=== PATIENT | female | born 1960 | race Caucasian/White ===

== ENCOUNTER 2017-03-31 13:59 | Outpatient (CLI) | payer OTHER ==
[~2017-03-31 13:59] MED LIST: DICLOFENAC POTA50 MG PO; KETO10TA2 PO; NORFLEX100MG PO; ORPH100T PO; TESSALON PERLE100 M1 PO; TORADOL60 MG IM; VOLTAREM 50 MG PO; ZYRTEC10 M3 PO
== END 2017-03-31 14:19 | disposition home or self-care (01) ==
LOC: RAD 13:59
DX: M54.5 Low back pain (principal)

== ENCOUNTER 2017-07-11 10:14 | Outpatient (CLI) | payer OTHER | END 2017-07-11 10:27 | disposition home or self-care (01) | LOC: TOM 10:14 | DX: J45.50 Severe persistent asthma, uncomplicated (principal); R09.1 Pleurisy ==

== ENCOUNTER → 2017-07-11 | Outpatient (CLI) | payer OTHER | END | disposition home or self-care (01) | LOC: PPHC 12:13 | DX: L03.116 Cellulitis of left lower limb (principal) ==

== ENCOUNTER 2017-08-10 12:04 | Outpatient (CLI) | payer OTHER | END 2017-08-10 12:14 | disposition home or self-care (01) | LOC: LAB 12:04 | DX: J45.50 Severe persistent asthma, uncomplicated (principal); J41.0 Simple chronic bronchitis; R05 Cough; R60.0 Localized edema ==

== ENCOUNTER 2017-11-08 14:04 | Outpatient (CLI) | payer OTHER | END 2017-11-08 14:23 | disposition home or self-care (01) | LOC: LAB 14:04 | DX: J30.89 Other allergic rhinitis (principal) ==

== ENCOUNTER → 2018-01-16 12:23 | Outpatient (CLI) | payer OTHER | END | disposition home or self-care (01) | LOC: LAB 12:23 | DX: N39.0 Urinary tract infection, site not specified (principal); R10.84 Generalized abdominal pain; I10 Essential (primary) hypertension ==

== ENCOUNTER 2018-02-28 14:43 | Outpatient (CLI) | payer OTHER | END 2018-02-28 15:00 | disposition home or self-care (01) | LOC: LAB 14:43 | DX: N39.0 Urinary tract infection, site not specified (principal) ==

== ENCOUNTER 2018-07-11 09:14 | Outpatient (CLI) | payer OTHER | END 2018-07-11 09:23 | disposition home or self-care (01) | LOC: LAB 09:14 | DX: M19.90 Unspecified osteoarthritis, unspecified site (principal); E78.89 Other lipoprotein metabolism disorders; E03.8 Other specified hypothyroidism ==

== ENCOUNTER → 2018-07-12 | Outpatient (CLI) | payer OTHER | END | disposition home or self-care (01) | LOC: NUCLEAR 13:00 | DX: I87.2 Venous insufficiency (chronic) (peripheral) (principal); E66.01 Morbid (severe) obesity due to excess calories ==

== ENCOUNTER 2018-08-30 14:12 | Outpatient (CLI) | payer OTHER | END 2018-08-30 14:17 | disposition home or self-care (01) | LOC: RAD 14:12 | DX: J32.8 Other chronic sinusitis (principal) ==

== ENCOUNTER 2018-11-28 14:14 | Outpatient (CLI) | payer OTHER | END 2018-11-28 15:00 | disposition home or self-care (01) | LOC: LAB 14:14 | DX: J45.50 Severe persistent asthma, uncomplicated (principal); J30.89 Other allergic rhinitis ==

== ENCOUNTER 2019-01-16 14:08 | Outpatient (CLI) | payer OTHER | END 2019-01-16 14:55 | disposition home or self-care (01) | LOC: TOM 14:08 | DX: D35.2 Benign neoplasm of pituitary gland (principal) ==

== ENCOUNTER 2019-01-17 14:07 | Outpatient (CLI) | payer OTHER | END 2019-01-17 14:37 | disposition home or self-care (01) | LOC: MAMO-SONO 14:07 | DX: Z12.31 Encounter for screening mammogram for malignant neoplasm of breast (principal); Z12.39 Encounter for other screening for malignant neoplasm of breast ==

== ENCOUNTER 2019-09-25 15:10 | Outpatient (CLI) | payer OTHER | END 2019-09-25 15:16 | disposition home or self-care (01) | LOC: LAB 15:10 | PROVIDERS: ATTEND Internal Medicine Pulmonary Disease | DX: J45.50 Severe persistent asthma, uncomplicated (principal) ==

== ENCOUNTER 2019-12-04 16:15 | Outpatient (CLI) | payer OTHER | END 2019-12-04 18:00 | disposition home or self-care (01) | LOC: PPH VACUNA 16:15 | DX: Z23 Encounter for immunization (principal) ==

== ENCOUNTER 2020-01-08 14:17 | Outpatient (CLI) | payer OTHER | END 2020-01-08 14:24 | disposition home or self-care (01) | LOC: RAD 14:17 | PROVIDERS: ATTEND Internal Medicine Cardiovascular Disease | DX: M54.5 Low back pain (principal); M12.851 Other specific arthropathies, not elsewhere classified, right hip; M12.852 Other specific arthropathies, not elsewhere classified, left hip ==

== ENCOUNTER → 2020-01-10 08:51 | Outpatient (CLI) | payer OTHER | END | disposition home or self-care (01) | LOC: LAB 01-09 13:33 | PROVIDERS: ATTEND Internal Medicine Cardiovascular Disease | DX: I10 Essential (primary) hypertension (principal); E11.9 Type 2 diabetes mellitus without complications; E03.8 Other specified hypothyroidism; E78.2 Mixed hyperlipidemia; E55.9 Vitamin D deficiency, unspecified ==

== ENCOUNTER 2020-05-28 15:33 | Outpatient (CLI) | payer OTHER | END 2020-05-28 15:41 | disposition home or self-care (01) | LOC: RAD 15:33 | PROVIDERS: ATTEND Preventive Medicine Occupational Medicine | DX: M17.11 Unilateral primary osteoarthritis, right knee (principal); M16.11 Unilateral primary osteoarthritis, right hip ==

== ENCOUNTER 2020-09-28 06:49 | Outpatient (CLI) | payer OTHER | END 2020-09-28 06:51 | disposition home or self-care (01) | LOC: LAB 06:49 | PROVIDERS: ATTEND Internal Medicine Cardiovascular Disease | DX: I10 Essential (primary) hypertension (principal); E11.9 Type 2 diabetes mellitus without complications; E03.8 Other specified hypothyroidism; E78.2 Mixed hyperlipidemia ==

== ENCOUNTER 2020-10-06 09:44 | Outpatient (CLI) | payer OTHER | END 2020-10-06 09:50 | disposition home or self-care (01) | LOC: MAMO-SONO 09:44 | PROVIDERS: ATTEND Internal Medicine Cardiovascular Disease | DX: N63.11 Unspecified lump in the right breast, upper outer quadrant (principal); Z12.31 Encounter for screening mammogram for malignant neoplasm of breast ==

== ENCOUNTER 2020-10-27 13:29 | Outpatient (CLI) | payer OTHER | END 2020-10-27 13:34 | disposition home or self-care (01) | LOC: RAD 13:29 | PROVIDERS: ATTEND Orthopaedic Surgery | DX: M54.5 Low back pain (principal); M25.511 Pain in right shoulder; M25.561 Pain in right knee; M25.562 Pain in left knee ==

== ENCOUNTER 2020-11-19 08:00 | Outpatient (CLI) | payer OTHER | END 2020-11-19 08:30 | disposition home or self-care (01) | LOC: PPH VACUNA 08:00 | PROVIDERS: ATTEND Emergency Medicine Pediatric Emergency Medicine | DX: Z23 Encounter for immunization (principal) ==

== ENCOUNTER → 2020-12-16 | Outpatient (CLI) | payer OTHER | END | disposition home or self-care (01) | LOC: PPH VACUNA 08:00 | PROVIDERS: ATTEND Emergency Medicine Pediatric Emergency Medicine | DX: Z23 Encounter for immunization (principal) ==

== ENCOUNTER 2021-03-28 12:49 | Emergency (ER) | payer OTHER ==
[~2021-03-28] VITALS: Ht 162.6 cm; Wt 130.2 kg
[2021-03-28] MEDS ORDERED: CLARITIN10 M2 PO (13:10)
[2021-03-28] MEDS ORDERED: ATACAND16 MG PO (13:11)
[2021-03-28] MEDS ORDERED: PREDNISONE20 MG (13:12)
[2021-03-28] MEDS ORDERED: FLOVENT DISKUS50 MCG (13:12)
[2021-03-28] MEDS ORDERED: XOPENEX0.63 MG/3 IH (13:12)
[2021-03-28] MEDS ORDERED: [UNRECOGNIZED DRUG - OTHER] (13:13)
== END 2021-03-28 14:23 | disposition home or self-care (01) ==
LOC: ER 12:49
DX: J45.998 Other asthma (principal); I10 Essential (primary) hypertension

== ENCOUNTER 2021-05-07 09:19 | Outpatient (CLI) | payer OTHER ==
[~2021-05-07 09:19] MED LIST changes: +ATACAND16 MG PO; +CLARITIN10 M2 PO; +FLOVENT DISKUS50 MCG; +PREDNISONE20 MG; +XOPENEX0.63 MG/3 IH; +[UNRECOGNIZED DRUG - OTHER]
== END 2021-05-07 09:25 | disposition home or self-care (01) ==
LOC: LAB 09:19
PROVIDERS: ATTEND Internal Medicine Pulmonary Disease
DX: D64.9 Anemia, unspecified (principal); N39.0 Urinary tract infection, site not specified; R10.9 Unspecified abdominal pain; E03.9 Hypothyroidism, unspecified; E78.5 Hyperlipidemia, unspecified; E55.9 Vitamin D deficiency, unspecified; E11.9 Type 2 diabetes mellitus without complications; R73.9 Hyperglycemia, unspecified; M19.90 Unspecified osteoarthritis, unspecified site; J45.20 Mild intermittent asthma, uncomplicated

== ENCOUNTER 2021-07-12 08:00 | Outpatient (CLI) | payer OTHER | END 2021-07-12 08:30 | disposition home or self-care (01) | LOC: PPH VACUNA 08:00 | PROVIDERS: ATTEND Emergency Medicine Pediatric Emergency Medicine | DX: Z23 Encounter for immunization (principal) ==

== ENCOUNTER 2021-10-07 10:13 | Outpatient (CLI) | payer OTHER | END 2021-10-07 10:20 | disposition home or self-care (01) | LOC: RAD 10:13 | PROVIDERS: ATTEND Internal Medicine Rheumatology | DX: M17.9 Osteoarthritis of knee, unspecified (principal) ==

== ENCOUNTER 2021-10-25 08:28 | Outpatient (CLI) | payer OTHER | END 2021-10-25 08:29 | disposition home or self-care (01) | LOC: LAB 08:28 | DX: D64.9 Anemia, unspecified (principal); N39.0 Urinary tract infection, site not specified; R10.9 Unspecified abdominal pain; E03.9 Hypothyroidism, unspecified; E78.5 Hyperlipidemia, unspecified; E55.9 Vitamin D deficiency, unspecified; E11.9 Type 2 diabetes mellitus without complications; M19.90 Unspecified osteoarthritis, unspecified site; Z12.11 Encounter for screening for malignant neoplasm of colon ==

== ENCOUNTER 2022-02-08 12:00 | Outpatient (CLI) | payer OTHER | END 2022-02-08 15:32 | disposition home or self-care (01) | LOC: LAB 12:00 | PROVIDERS: ATTEND Internal Medicine Cardiovascular Disease | DX: I10 Essential (primary) hypertension (principal); E11.9 Type 2 diabetes mellitus without complications; E03.9 Hypothyroidism, unspecified; E78.2 Mixed hyperlipidemia ==

== ENCOUNTER 2022-03-09 09:09 | Outpatient (CLI) | payer OTHER | END 2022-03-09 09:10 | disposition home or self-care (01) | LOC: MAMO-SONO 09:09 | PROVIDERS: ATTEND Internal Medicine Cardiovascular Disease | DX: N63.11 Unspecified lump in the right breast, upper outer quadrant (principal) ==

== ENCOUNTER 2022-07-24 08:33 | Outpatient (CLI) | payer OTHER | END 2022-07-24 08:41 | disposition home or self-care (01) | LOC: LAB 08:33 | PROVIDERS: ATTEND Internal Medicine Cardiovascular Disease | DX: E03.9 Hypothyroidism, unspecified (principal); I10 Essential (primary) hypertension; E11.9 Type 2 diabetes mellitus without complications; E78.2 Mixed hyperlipidemia; E55.9 Vitamin D deficiency, unspecified; Z12.11 Encounter for screening for malignant neoplasm of colon; J45.50 Severe persistent asthma, uncomplicated; J30.9 Allergic rhinitis, unspecified ==

== ENCOUNTER 2023-04-04 09:49 | Outpatient (CLI) | payer OTHER | END 2023-04-04 09:58 | disposition home or self-care (01) | LOC: SONOGRAMA 09:49 | PROVIDERS: ATTEND Obstetrics & Gynecology | DX: N95.0 Postmenopausal bleeding (principal) ==

== ENCOUNTER 2024-05-28 07:53 | Outpatient (CLI) | payer OTHER | END 2024-05-28 07:56 | disposition home or self-care (01) | LOC: MAMO-SONO 07:53 | PROVIDERS: ATTEND Internal Medicine Cardiovascular Disease | DX: N60.11 Diffuse cystic mastopathy of right breast (principal); N60.12 Diffuse cystic mastopathy of left breast; Z12.31 Encounter for screening mammogram for malignant neoplasm of breast ==